=== PATIENT | male | born 1955 | race Caucasian/White ===

== ENCOUNTER 2017-02-23 05:55 | Emergency (ER) | payer SELFPAY ==
[~2017-02-23] VITALS: Ht 175.3 cm; Wt 82.0 kg
[~2017-02-23 05:55] MED LIST: LORTA5 PO; PROS5TAB2 PO; TAB-TAB PO
[2017-02-23 06:01] VITALS: PULSE 120; RESP 22; TEMP 98.2; O2SAT 97
--- NOTE | 2017-02-23 06:19 | PD ---
HPI Chief Complaint: Medical Clearance Time Seen by Provider: 06:08 Travel History International Travel<30 days: No Contact w/Intl Traveler<30days: No Traveled to known affect area: No History of Present Illness HPI Patient is a 62-year-old male presents emergency Department under arrest for DUI for evaluation of head injury. According to officers after rest the patient banged his head against the wall of the squad car. Patient intoxicated on arrival quite upset about "throwing his life away" tonight. Patient unwilling to give any history at this time. He is accompanied by law enforcement. PFSH Past Medical History Cancer: No Diabetes: No Diminished Hearing: No GERD: Yes Glaucoma: No Genitourinary: Yes (BPH) Hepatitis: No Hiatal Hernia: Yes Hypertension: No Respiratory: Yes (HX ASTHMA, AGE 23 LAST TIME) Thyroid Disease: No Past Surgical History Abdominal Surgery: No Cardiac Surgery: No Ear Surgery: No Endocrine Surgery: No Eye Surgery: No Genitourinary Surgery: No Gynecologic Surgery: No Oral Surgery: No Pacemaker: No Thoracic Surgery: Yes Other Surgery: Yes (SINUSES) Social History Alcohol Use: No Tobacco Use: No Substance Use: No Allergies-Medications (Allergen,Severity, Reaction): Coded Allergies: Lopid (Verified Allergy, Severe, rash, hypotension, 02/23/17) Morphine (Verified Adverse Reaction, Mild, Irritability/Anxiety, 02/23/17) Reported Meds & Prescriptions Reported Meds & Active Scripts Active Reported Lexapro (Escitalopram Oxalate) 5 Mg Tab 5 Mg PO DAILY Lisinopril 10 Mg Tab 10 Mg PO DAILY Review of Systems ROS Limitations: Intoxication Physical Exam Narrative GENERAL: Well-developed well-nourished, intoxicated, crying. SKIN: Focused skin assessment warm/dry. HEAD: No dugan signs no raccoons eyes, laceration over mid forehead.. Normocephalic. EYES: Pupils equal and round. No scleral icterus. No injection or drainage. ENT: No nasal bleeding or discharge. Mucous membranes pink and moist. NECK: Trachea midline. No JVD. CARDIOVASCULAR: Regular rate and rhythm. No murmur appreciated. RESPIRATORY: No accessory muscle use. Clear to auscultation. Breath sounds equal bilaterally. GASTROINTESTINAL: Abdomen soft, non-tender, nondistended. Hepatic and splenic margins not palpable. MUSCULOSKELETAL: No obvious deformities. No clubbing. No cyanosis. No edema. NEUROLOGICAL: Awake and alert. No obvious cranial nerve deficits. Moves all 4 extremities, normal speech. PSYCHIATRIC: Appropriate mood and affect; insight and judgment normal. Data Data Last Documented VS Vital Signs Date Time Temp Pulse Resp B/P Pulse Ox O2 Delivery O2 Flow Rate FiO2 02/23/17 07:30 97.8 78 16 130/[address] Brain W/O Iv Contrast(Rout) (02/23/17 ) Ct Cerv Spine W/O Contrast (02/23/17 ) [id number] (Booster) Inj (Boostrix (02/23/17 07:00) MDM Medical Decision Making Medical Screen Exam Complete: Yes Emergency Medical Condition: Yes Differential Diagnosis Closed head injury, Alcohol intoxication, neck injury, frontal contusion. Narrative Course Patient roomed in the ER. CT head and cerv spine ordered. No other imaging indicated. Discussed with Dr. Maya at 0700 shift change to follow up imaging , and disposition appropriately. Fritz Dominguez MD Feb 23, 2017 06:19
[2017-02-23] MEDS ORDERED: LEXA5TAB PO (06:21)
[2017-02-23] MEDS ORDERED: LISI10TA3 PO (06:21)
[2017-02-23] MEDS ORDERED: DIPHTH/TETANUS/ACEL PERTUSSIS (BOOSTER) 0.5 ML VIAL/PFS IM ONE (07:00)
--- NOTE | 2017-02-23 07:05 | RADRPT ---
EXAM DATE/TIME: 02/23/2017 06:28 [facility] COMPARISON: CT BRAIN W/O CONTRAST, May 01, 2013, 19:34. INDICATIONS : Trauma, banged head against wall. RADIATION DOSE: 56.35 CTDIvol (mGy) MEDICAL HISTORY : None SURGICAL HISTORY : None. ENCOUNTER: Initial ACUITY: 1 day PAIN SCALE: Non-responsive LOCATION: cranial TECHNIQUE: Multiple contiguous axial images were obtained of the head. Using automated exposure control and adj ustment of the mA and/or kV according to patient size, radiation dose was kept as low as reasonably a chievable to obtain optimal diagnostic quality images. DICOM format image [facility] is available [facility] for [facility] and [facility]. FINDINGS: CEREBRUM: The ventricles are normal for age. No evidence of midline shift, mass lesion, hemorrhage or acute in farction. No extra-axial fluid collections are seen. POSTERIOR FOSSA: The cerebellum and brainstem are intact. The 4th ventricle is midline. The cerebellopontine angle i s unremarkable. EXTRACRANIAL: The visualized portion of the orbits is intact. SKULL: The calvaria is intact. No evidence of skull fracture. Small cephalhematoma over the frontal bone ce ntrally. CONCLUSION: 1. Small cephalhematoma over the frontal bone. 2. Otherwise negative with no acute intracranial trauma or fracture. Wally Rutledge MD on February 23, 2017 at 7:02 Board Certified Radiologist. This report was verified electronically.
--- NOTE | 2017-02-23 07:11 | RADRPT ---
EXAM DATE/TIME: 02/23/2017 06:30 [facility] COMPARISON: No previous studies available for comparison. INDICATIONS : Trauma, banged head against wall. RADIATION DOSE: 33.94 CTDIvol (mGy) MEDICAL HISTORY : None SURGICAL HISTORY : None. ENCOUNTER: Initial ACUITY: 1 day PAIN SCALE: Non-responsive LOCATION: neck TECHNIQUE: Volumetric scanning of the cervical spine was performed. Multiplanar reconstructions in the sagittal, coronal and oblique axial planes were performed. Using automated exposure control and adjustment o f the mA and/or kV according to patient size, radiation dose was kept as low as reasonably achievable to obtain optimal diagnostic quality images. DICOM format image data is available electronically f or review and comparison. FINDINGS: Sagittal and coronal reconstruction show multilevel degenerative disc disease with loss of disc heigh t and marginal spurring from C4-5 inferiorly. This is most severe at C5-6 and C6-7. Grade 1 anterolis thesis of C4 on 5 and C7 on T1 with a minimal grade 1 retrolisthesis of C5 on C6 probably due to face t degeneration. Vertebral body heights are maintained without fracture. Benign-appearing 4.3 x 1.5 cm muscular lipoma in the erector spinae muscles of the right neck. Degenerative images as follows: C2-C3: The bony spinal canal is normal in size. No evidence of disc bulge or herniation. The neural forami na are bilaterally patent. C3-C4: Left-sided facet hypertrophy. Spinal canal and neural foramina are patent. C4-C5: Right-sided facet hypertrophy. Minimal uncovertebral ridging. Spinal canal and neural foramina remain adequate. C5-C6: Uncovertebral ridging predominantly directed inferiorly. Spinal canal and neural foramina are adequat e C6-C7: Uncovertebral ridging predominantly directed anteriorly. Spinal canal and neural foramina remain adeq uate C7-T1: The bony spinal canal is normal in size. No evidence of disc bulge or herniation. The neural forami na are bilaterally patent. CONCLUSION: 1. Multiple attempted disc disease with loss of disc height from C4-5 inferiorly, most severe at C5-6 and C6-7 with associated uncovertebral ridging. 2. Reversal of the normal lordotic curvature with grade 1 anterolisthesis of C4 on C5 and C7 on T1 an d minimal grade 1 retrolisthesis of C5 on 6 probably due to facet degeneration and hypertrophy. 3. Despite facet hypertrophy and multilevel uncovertebral ridging, and the spinal canal and neural fo ramina are adequate. No fracture. 4. Elongated, 4.2 x 1.5 cm lipoma in the erector spinae muscles of the right neck. Wally Rutledge MD on February 23, 2017 at 7:04 Board Certified Radiologist. This report was verified electronically.
--- NOTE | 2017-02-23 07:16 | PD ---
Physical Exam Date Seen by Provider: Feb 23, 2017 Narrative Care was assumed from Dr. Dominguez at [address] of his head and C-spine. Data Data Last Documented VS Vital Signs Date Time Temp Pulse Resp B/P Pulse Ox O2 Delivery O2 Flow Rate FiO2 02/23/17 06:01 98.[address] Brain W/O Iv Contrast(Rout) (02/23/17 ) Ct Cerv Spine W/O Contrast (02/23/17 ) [id number]-Hpyebz (Booster) Inj (Boostrix (02/23/17 07:00) MDM Supervised Visit with LENA: No Narrative Course CT C-spine: CONCLUSION: 1. Multiple attempted disc disease with loss of disc height from C4-5 inferiorly , most severe at C5-6 and C6-7 with associated uncovertebral ridging. 2. Reversal of the normal lordotic curvature with grade 1 anterolisthesis of C4 on C5 and C7 on T1 and minimal grade 1 retrolisthesis of C5 on 6 probably due to facet degeneration and hypertrophy. 3. Despite facet hypertrophy and multilevel uncovertebral ridging, and the spinal canal and neural foramina are adequate. No fracture. 4. Elongated, 4.2 x 1.5 cm lipoma in the erector spinae muscles of the right neck. CT head: 1. Small cephalhematoma over the frontal bone. 2. Otherwise negative with no acute intracranial trauma or fracture. This patient is stable for discharge with the police. Diagnosis Primary Impression: Forehead abrasion Qualified Code: S00.81XA - Forehead abrasion, initial encounter Additional Impressions: Scalp contusion Cervical strain Qualified Code: S16.1XXA - Cervical strain, initial encounter Patient Instructions: Abrasion (ED), Cervical Strain (DC), General Instructions , Scalp Contusion in Adults (ED) Disposition: [address] LAW ENFORCEMNT Condition: Stable Soledad Maya MD Feb 23, 2017 07:16
[2017-02-23 07:30] VITALS: BP 130/76; TEMP 97.8
== END 2017-02-23 07:30 | disposition home or self-care (01) ==
LOC: NEPC 05:55
DX: S00.81XA Abrasion of other part of head, initial encounter (principal); S00.03XA Contusion of scalp, initial encounter; S16.1XXA Strain of muscle, fascia and tendon at neck level, initial encounter; W22.8XXA Striking against or struck by other objects, initial encounter; K21.9 Gastro-esophageal reflux disease without esophagitis; N40.0 Benign prostatic hyperplasia without lower urinary tract symptoms; J45.909 Unspecified asthma, uncomplicated; Z23 Encounter for immunization
CPT/HCPCS: 70450; 72125; 90471; 90715